=== PATIENT | male | born 1985 | race American Indian/Alaskan Native ===

== ENCOUNTER 2020-09-14 15:43 | Emergency (ER) | payer SELFPAY ==
[2020-09-14] MEDS ORDERED: IBUPROFEN 800 MG TAB PO ONE (18:58)
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
[2020-09-14 19:56] VITALS: BP 108/78
[2020-09-14] MEDS ORDERED: TETANUS,DIPH,PERTUSS(ACELL) VACCINE 0.5 ML SYRINGE IM ONE (20:06)
[2020-09-14] MEDS ORDERED: oxyCODONE /ACETAMINOPHEN 5-325MG TAB PO ONE (20:07)
[2020-09-14] MEDS ORDERED: CLINDAMYCIN 300 MG CAP PO ONE (20:09)
== END 2020-09-14 21:35 | disposition other institution (70) ==
LOC: ED 15:43
DX: S02.69XA Fracture of mandible of other specified site, initial encounter for closed fracture (principal); M79.602 Pain in left arm; Z88.0 Allergy status to penicillin; Z79.899 Other long term (current) drug therapy; Y04.8XXA Assault by other bodily force, initial encounter; Y93.89 Activity, other specified; Y92.89 Other specified places as the place of occurrence of the external cause; Y99.8 Other external cause status
CPT/HCPCS: 70486; 90471; 90715; 99284